=== PATIENT | female | born 2005 | race Caucasian/White ===

== ENCOUNTER 2023-02-25 22:45 | Observation (INO) | payer MEDICAID, OTHER ==
[~2023-02-25] VITALS: Ht 167.6 cm; Wt 72.6 kg
[2023-02-26] MEDS ORDERED: LACTATED RINGERS 1,000 ML IV SCH (00:45)
[2023-02-26] MEDS ORDERED: PV W1TAB21 PO (03:54)
[2023-02-26] MEDS ORDERED: FERR325T6 PO (03:54)
== END 2023-02-26 04:15 | disposition home or self-care (01) ==
LOC: 8 EST LDRP 22:45 → UNDOADMOB 22:45
PROVIDERS: ADMIT Obstetrics & Gynecology; ATTEND Obstetrics & Gynecology
DX: O26.893 Other specified pregnancy related conditions, third trimester (principal); R51.9 Headache, unspecified; M54.2 Cervicalgia; R10.30 Lower abdominal pain, unspecified; O99.891 Other specified diseases and conditions complicating pregnancy; M54.9 Dorsalgia, unspecified; Z3A.34 34 weeks gestation of pregnancy
CPT/HCPCS: 59025; 76805; 76818; 96360; 96361; 99281; G0378